=== PATIENT | male | born 1995 | race Caucasian/White ===

== ENCOUNTER 2018-02-07 22:19 | Emergency (ER) | payer OTHER ==
[2018-02-07] MEDS ORDERED: ONDANSETRON DISINTEGRATING 4 MG TAB PO ONE (23:05)
--- NOTE | 2018-02-07 23:10 | EDPHY ---
H & P Stated Complaint: passed out this am hit head on desk, now c/o vomiting Time Seen by Provider: 02/07/18 22:46 HPI/ROS: HPI The patient presents with nausea, vomiting. Earlier today at about 145 he was sitting in class and began to feel lightheaded and dizzy, he lost his vision and then next thing he remembers is awaking on the floor. According to his classmates he hit his head on a table and then a tile floor. He since has had vomiting, multiple episodes of lasted throughout the afternoon and evening. He does have a headache which is throbbing in nature and diffuse which is worse when he moves his head in any direction. He initially had some confusion and blurry vision which has improved. He has had several other syncopal episodes. He has never had a concussion.. REVIEW OF SYSTEMS Constitutional: No fever, no chills. Eyes: No discharge. ENT: No sore throat. Cardiovascular: No chest pain, no palpitations. Respiratory: No cough, no shortness of breath. Gastrointestinal: No abdominal pain, positive for vomiting. Genitourinary: No hematuria. Musculoskeletal: No back pain. Skin: No rashes. Neurological: Positive for headache. PMHx: Healthy with prior syncopal episodes Soc Hx: College student PHYSICAL General Appearance: Alert, no distress Eyes: Pupils equal and round no pallor or injection ENT, Mouth: Mild tenderness overlying his left eyebrow, Mucous membranes moist Respiratory: There are no retractions, lungs are clear to auscultation Cardiovascular: Regular rate and rhythm Gastrointestinal: Abdomen is soft and non-tender, no masses, bowel sounds normal Neurological: A&O, cranial nerves 2-12 intact, 5/5 strength in upper and lower extremities, moves all extremities Skin: Warm and dry, no rashes Musculoskeletal: Neck is supple non tender Extremities: symmetrical, full range of motion Psychiatric: Patient is oriented X 3, there is no agitation Source: Patient Exam Limitations: No limitations - Personal History Current Tetanus Diphtheria and Acellular Pertussis (TDAP): Yes - Medical/Surgical History Hx Asthma: No Hx Chronic Respiratory Disease: No Hx Diabetes: No Hx Cardiac Disease: No Hx Renal Disease: No Hx Cirrhosis: No Hx Alcoholism: No Hx HIV/AIDS: No Hx Splenectomy or Spleen Trauma: No Other PMH: denies - Social History Smoking Status: Never smoked Constitutional: Initial Vital Signs Temperature (C) 36.2 C 02/07/18 22:27 Heart Rate 79 02/07/18 22:27 Respiratory Rate 18 02/07/18 22:27 Blood Pressure 110/73 02/07/18 22:27 O2 Sat (%) 100 02/07/18 22:27 O2 Delivery Mode Room Air Allergies/Adverse Reactions: No Known Allergies Allergy (Unverified 02/07/18 22:26) Home Medications: Medication Instructions Recorded NK [No Known Home Meds] 02/07/18 Medical Decision Making - Diagnostics EKG Interpretation: EKG: Complete interpretation has been separately recorded in the [facility] archive. Summary impression: Early repolarization pattern Imaging Results: Imaging Impressions Head CT 02/07/18 23:06 Impression: Normal. Results called and discussed with Gloria Cain MD at 02/07/2018 23:36. Imaging: Discussed imaging studies w/ call worker Radiologist, I viewed and interpreted images myself Differential Diagnosis: 22-year-old male who is healthy presents with a syncopal episode while seated, hitting his head on a table and then the floor. Upon awakening with ongoing headache and vomiting. On exam, he appears mildly dehydrated with dry mucous membranes, his neurologic exam is normal, he does not appear to have suffered from any facial fractures. Plan for CT scan of head because by nexus 2 criteria he rules in for imaging because of his persistent vomiting as well as headache. Will also check EKG to evaluate for arrhythmia and control his symptoms with Zofran 0 DT to begin with. He may require an IV for hydration. In the emergency department, CT scan was unremarkable. EKG was normal showing no arrhythmia. He improved with Zofran 0 DT and was able to tolerate p.o. Without difficulty. I feel he is likely suffering from a concussion. I have adult long discussion with the patient and his family about treatment and diagnosis of concussions. He will be discharged home with his family. - Data Points Medications Given: Discontinued Medications Ondansetron HCl (Zofran Odt) 4 mg PO EDNOW ONE Stop: 02/07/18 23:06 Last Admin: 02/07/18 23:15 Dose: 4 mg Ondansetron HCl (Zofran Odt 4 Mg Prepack#2) 1 btl TAKEHOME EDNOW ONE Stop: 02/08/18 00:35 Last Admin: 02/08/18 01:02 Dose: 1 btl Departure - Departure Disposition: Home, Routine, Self-Care Clinical Impression: Syncope Qualifiers: Syncope type: vasovagal syncope Qualified Code(s): R55 - Syncope and collapse Concussion Qualifiers: Encounter type: initial encounter Loss of consciousness presence/duration: with LOC of unspecified duration Qualified Code(s): S06.0X9A - Concussion with loss of consciousness of unspecified duration, initial encounter Vomiting Qualifiers: Vomiting type: unspecified Vomiting Intractability: non-intractable Nausea presence: with nausea Qualified Code(s): R11.2 - Nausea with vomiting, unspecified Condition: Good Instructions: Concussion (ED) Additional Instructions: Please avoid any contact sports until you're feeling better. You should take ibuprofen 400 mg every 6 hr as needed for headache. Please make sure to get plenty of rest. Referrals: Mercedes Bautista MD [Medical Doctor] - As per Instructions
--- NOTE | 2018-02-07 23:14 | CPEKG ---
Heart Rate: 76 RR Interval: 789 P-R Interval: 156 QRSD Interval: 104 QT Interval: 392 QTC Interval: 441 P Demotte: 78 QRS Demotte: 92 T Wave Demotte: 61 EKG Severity - OTHERWISE NORMAL ECG - EKG Impression: SINUS RHYTHM EKG Impression: BORDERLINE RIGHT AXIS DEVIATION EKG Impression: ST ELEV, PROBABLE NORMAL EARLY REPOL PATTERN Electronically Signed By: Gloria Cain 08-Feb-2018 07:17:44
[2018-02-08] MEDS ORDERED: ONDANSETRON 4MG PREPACK#2 BTL TAKEHOME ONE (00:34)
[2018-02-08 01:06] VITALS: BP 109/59; PULSE 69; RESP 16; TEMP 97.9; O2SAT 95
== END 2018-02-08 01:07 | disposition home or self-care (01) ==
DX: S06.0X9A Concussion with loss of consciousness of unspecified duration, initial encounter (principal); R55 Syncope and collapse; R11.2 Nausea with vomiting, unspecified; W22.8XXA Striking against or struck by other objects, initial encounter; Y92.89 Other specified places as the place of occurrence of the external cause; Y99.8 Other external cause status; Y93.89 Activity, other specified